=== PATIENT | male | born 1995 | race Caucasian/White ===

== ENCOUNTER 2020-07-31 19:35 | Emergency (ER) | payer MEDICAID ==
[~2020-07-31] VITALS: Ht 175.3 cm; Wt 64.0 kg
[2020-07-31] MEDS: MORPHINE SULFATE 4 MG/ML CPJ (NOT FOR IM USE) IV STA (21:32)
[2020-07-31] MEDS: ONDANSETRON HCL 4MG/2ML INJ IV STA (21:32)
[2020-07-31] MEDS: SODIUM CHLORIDE 0.9% 1,000 ML IV ONE (21:32)
[2020-07-31 21:37] LABS: BASOPHILS % 1.4 % (0.0-2.0); EOSINOPHILS % 4.2 % (0.0-5.0); HEMOGLOBIN. 14.2 g/dL (14.0-18.0); LYMPHOCYTES % 34.4 % (20.0-50.0); MEAN CORPUSCULAR VOLUME 85.5 fL (80.0-94.0); MONOCYTES % 8.4 % (2.0-8.0); NEUTROPHILS % 51.6 % (40.0-76.0); PLATELET 400 x1000/uL (130-400); RED BLOOD CELL COUNT 4.91 mill/uL (4.7-6.1); RED CELL DISTRIBUTION WIDTH 12.5 % (11.6-14.6)
[2020-07-31 21:45] LABS: CHLORIDE 104 mEq/L (98-107)
[2020-07-31 21:47] LABS: PROTHROMBIN TIME 10.4 sec (9.6-11.0)
[2020-07-31 21:49] LABS: ETHANOL BLOOD < 10 mg/dL
[2020-08-01 00:35] LABS: CLARITY URINE CLEAR (CLEAR); COLOR URINE YELLOW (YELLOW); KETONES URINE NEGATIVE (NEGATIVE); LEUKOCYTE ESTERASE URINE NEGATIVE (NEGATIVE); NITRITE URINE NEGATIVE (NEGATIVE); OCCULT BLOOD URINE NEGATIVE (NEGATIVE); PH URINE 6.5 (4.5-8.0); PROTEIN URINE NEGATIVE (NEGATIVE); SPECIFIC GRAVITY URINE 1.009 (1.005-1.030); UROBILINOGEN URINE 0.2 E.U./dL (0.2-1.0)
[2020-08-01 00:51] LABS: *AMPHETAMINES SCREEN URINE NEGATIVE (NEGATIVE); *BARBITURATES SCREEN URINE NEGATIVE (NEGATIVE); *COCAINE SCREEN URINE NEGATIVE (NEGATIVE); OPIATES URINE SCREEN PRESUMTIVE POSITIVE (NEGATIVE)
[2020-08-01 00:52] LABS: CANNABINOID URINE SCREEN PRESUMTIVE POSITIVE (NEGATIVE); PHENCYCLIDINE URINE SCREEN NEGATIVE (NEGATIVE)
[2020-08-01 00:53] LABS: *BENZODIAZEPINES SCREEN URINE NEGATIVE (NEGATIVE)
[2020-08-01 00:55] LABS: METHADONE URINE SCREEN NEGATIVE (NEGATIVE)
[2020-08-01] MEDS ORDERED: IOHEXOL-300 100 ML BOTTLE ONE (02:11)
[2020-08-01 06:12] VITALS: BP 106/65
== END 2020-08-01 09:59 ==
LOC: ER 19:35
DX: R10.12 Left upper quadrant pain (principal); F31.9 Bipolar disorder, unspecified; R11.2 Nausea with vomiting, unspecified; R19.7 Diarrhea, unspecified; R03.0 Elevated blood-pressure reading, without diagnosis of hypertension; Z75.1 Person awaiting admission to adequate facility elsewhere; F12.90 Cannabis use, unspecified, uncomplicated; F14.10 Cocaine abuse, uncomplicated
CPT/HCPCS: 36415; 71045; 74177; 80053; 80305; 80320; 81003; 83605; 83690; 84484; 85025; 85610; 86850; 86900; 86901; 93005; 96374; 96375; 99285; J2270; J2405; J7030; Q9967; G0480